=== PATIENT | female | born 1980 | race Caucasian/White ===

== ENCOUNTER 2017-06-30 08:28 | Emergency (ER) | payer BC ==
[~2017-06-30] VITALS: Ht 180.3 cm; Wt 131.5 kg
[2017-06-30] MEDS ORDERED: SERTRALINE HCL50 MG (08:43)
[2017-06-30] MEDS ORDERED: METOPROLOL SUC200 MG (08:43)
[2017-06-30] MEDS ORDERED: PRINIVIL20 MG (08:44)
== END 2017-06-30 11:15 | disposition home or self-care (01) ==
LOC: ER 08:28
DX: J02.9 Acute pharyngitis, unspecified (principal); J03.90 Acute tonsillitis, unspecified